=== PATIENT | female | born 1960 | race Caucasian/White ===

== ENCOUNTER → 2024-10-27 | Outpatient (CLI) | payer MEDICARE ==
--- NOTE | 2024-10-28 08:08 | PE ---
EXAMINATION TYPE: PET CT fusion skull to thigh DATE OF EXAM: 10/27/2024 COMPARISON: NONE HISTORY: Solitary pulmonary nodule TECHNIQUE: Following the intravenous administration of 12.29 mCi of F-18 FDG, whole body images are performed from the skull base to the midthigh. Images are reviewed on the computer in the coronal, a xial, and sagittal planes. Reconstructed rotating images are created on independent workstation and reviewed on the computer. A localization and attenuation correction CT is performed in conjunction with the PET scan. Blood glucose level was 103. SCAN: Initial Scan FINDINGS: SKULL BASE AND NECK: No areas of abnormal hypermetabolic uptake. CHEST, MEDIASTINUM, AND HILAR REGION: [id number] underlying emphysematous change is present. Th ere is thickened linear opacity in the right upper lobe extending from central aspect to the peripher y. The area measures up to 2.3 x 2.1 cm axial image 77. There are areas of abnormal increased radiotr acer uptake with max SUV of 4.91 on axial image 75. No additional areas of abnormal hypermetabolic uptake in either lung or pneumomediastinum identified. ABDOMEN AND PELVIS: Normal excretion is seen. No hypermetabolic adrenal masses. Nonspecific mild left -sided bowel uptake. No areas of suspicious abnormal hypermetabolic uptake. OSSEOUS STRUCTURES: No areas of suspicious abnormal hypermetabolic uptake. OTHER CT: Mild coronary artery calcification is present. Nonobstructing 6 mm calculus left kidney axi al image 149. Slight scoliotic curvature in the thoracolumbar spine is present. IMPRESSION: Findings could reflect postinfectious or inflammatory etiology but neoplasm cannot be exc luded. Consider short-term follow-up CT and if the area persists tissue sampling would be advised. [facility], , 10/28/2024 8:05 AM
== END | disposition home or self-care (01) ==
LOC: RADPETMAIN 09:48
PROVIDERS: ATTEND Family Medicine
DX: R91.1 Solitary pulmonary nodule (principal); I25.10 Atherosclerotic heart disease of native coronary artery without angina pectoris
CPT/HCPCS: 78815; A9552